=== PATIENT | male | born 1980 | race Caucasian/White ===

== ENCOUNTER 2021-09-27 22:34 | Emergency (ER) | payer OTHER ==
[~2021-09-27] VITALS: Ht 168.9 cm; Wt 122.1 kg
--- NOTE | 2021-09-27 22:47 | PHYS DOC ---
Adult General Chief Complaint Chief Complaint: HAND PROBLEM HPI HPI Patient is a otherwise healthy 41-year-old male who presents with a laceration to the left hand after walking around the shed, grabbing the door and slicing in between his left thumb and index finger. Denies any other injuries. States he is not up-to-date on his tetanus vaccinations. Review of Systems Review of Systems Review of systems otherwise unremarkable except noted in HPI Physical Exam Physical Exam Constitutional: Well developed, well nourished, no acute distress, non-toxic appearance. [] HENT: Normocephalic, atraumatic, Extremities: 3 cm superficial laceration left hand in between first second digit the webbing, bleeding controlled, neurovascular exam intact, musculoskeletal exam intact Neurologic: Alert and oriented X 3, no focal deficits noted. [] Psychologic: Affect normal, judgement normal, mood normal. [] EKG EKG [] Radiology/Procedures Radiology/Procedures Wound cleaned up significantly with sterile water. L ET placed for topical anesthesia. Anesthesia achieved. Repaired with five 4-0 Ethilon sutures. Patient tolerated procedure well. Cleaned and bandaged. [] Heart Score C/O Chest Pain: No Risk Factors: Risk Factors: DM, Current or recent (<one month) smoker, HTN, HLP, family history of CAD, obesity. Risk Scores: Risk Factors: DM, Current or recent (<one month) smoker, HTN, HLP, family history of CAD, obesity. Course & Med Decision Making Course & Med Decision Making Patient is a 41-year-old male who presents with a hand laceration Vital signs not concerning. Physical exam noted above. Wound cleaned. Suture repaired. Tetanus updated. Advised to follow-up with primary care in 5 to 7 days for wound reevaluation and suture removal Gave return precautions to the ED. Patient grateful, verbalized understanding and agree with plan of discharge. Dragon Disclaimer Dragon Disclaimer This electronic medical record was generated, in whole or in part, using a voice recognition dictation system. Departure Departure: Impression: Primary Impression: Hand laceration Disposition: HOME / SELF CARE / HOMELESS Condition: GOOD Referrals: PCP,NO (PCP) CARLOS HOWELL MD Patient Instructions: Laceration Care, Adult Additional Instructions: Thank you for coming into the emergency department tonight allowing us to take care of you. Please read the attached information carefully to go back over some of the things we discussed. Please keep the area clean, dry and intact. You can take Tylenol and ibuprofen as needed. Please keep it bandaged to prevent further damage especially when working with your hands. Please follow- up with your primary care physician in 5 to 7 days for a wound check and suture removal. Please come back to the ED with new or concerning symptoms as we di scussed. CHAPIS BROTHERS MD Sep 27, 2021 22:47
[2021-09-27] MEDS ORDERED: DIPH,PERTUSS(ACELL),TET VAC/PF 0.5 ML SYRINGE. VAX IM ONE (23:00)
[2021-09-27] MEDS ORDERED: LIDOCAINE/EPI/TETRACAINE TOPICAL GEL 3 ML. TP ONE (23:00)
[2021-09-27] MEDS ORDERED: CEPHALEXIN 250 MG CAPSULE PO ONE (23:00)
[2021-09-27 23:43] VITALS: BP 152/88
== END 2021-09-27 23:44 | disposition home or self-care (01) ==
LOC: ER 22:34
DX: S61.412A Laceration without foreign body of left hand, initial encounter (principal); W26.8XXA Contact with other sharp object(s), not elsewhere classified, initial encounter; Y93.89 Activity, other specified; Y92.89 Other specified places as the place of occurrence of the external cause; Y99.8 Other external cause status
CPT/HCPCS: 12002; 90471; 90715; 99283